=== PATIENT | female | born 1990 | race African-American/Black ===

== ENCOUNTER 2018-03-13 10:12 | Emergency (ER) | payer MEDICAID, OTHER ==
[~2018-03-13] VITALS: Ht 157.5 cm; Wt 58.1 kg
[2018-03-13] MEDS ORDERED: IBUPROFEN 800MG TABLET PO ONE (12:00)
[2018-03-13 12:03] VITALS: BP 135/92
== END 2018-03-13 14:08 | disposition home or self-care (01) ==
LOC: ER 10:42
DX: S40.012A Contusion of left shoulder, initial encounter (principal); J45.909 Unspecified asthma, uncomplicated; W01.0XXA Fall on same level from slipping, tripping and stumbling without subsequent striking against object, initial encounter; Y93.02 Activity, running; Y92.009 Unspecified place in unspecified non-institutional (private) residence as the place of occurrence of the external cause; Y99.8 Other external cause status
CPT/HCPCS: 73030; 81025; 99284

== ENCOUNTER 2019-06-28 07:20 | Emergency (ER) | payer SELFPAY ==
[~2019-06-28] VITALS: Ht 157.5 cm; Wt 68.0 kg
[2019-06-28] MEDS ORDERED: KETOROLAC 30MG/ML VIAL IV STA (08:28)
[2019-06-28] MEDS ORDERED: METOCLOPRAMIDE HCL 10MG/2ML VIAL IV ONE (08:30)
[2019-06-28] MEDS ORDERED: FLUTICASONE PROPIONATE 50MCG/SPRAY BOTTLE BOTHNSTRLS SCH (09:00)
[2019-06-28 11:14] VITALS: BP 128/89
== END 2019-06-28 11:15 | disposition home or self-care (01) ==
LOC: ER 07:29
DX: J01.80 Other acute sinusitis (principal); B34.8 Other viral infections of unspecified site; J45.909 Unspecified asthma, uncomplicated
CPT/HCPCS: 71045; 81025; 96374; 96375; 99283; J1885; J2765; Z7610

== ENCOUNTER 2019-07-31 04:48 | Emergency (ER) | payer SELFPAY ==
[~2019-07-31] VITALS: Ht 157.5 cm; Wt 68.0 kg
[2019-07-31] MEDS ORDERED: ONDANSETRON HCL 4MG/2ML INJ IV STA (06:31)
[2019-07-31] MEDS ORDERED: KETOROLAC 30MG/ML VIAL IV STA (06:31)
[2019-07-31] MEDS ORDERED: SODIUM CHLORIDE 0.9% 1,000 ML IV ONE (06:31)
[2019-07-31 07:09] LABS: CLARITY URINE CLEAR (CLEAR); COLOR URINE YELLOW (YELLOW); KETONES URINE NEGATIVE (NEGATIVE); LEUKOCYTE ESTERASE URINE NEGATIVE (NEGATIVE); NITRITE URINE NEGATIVE (NEGATIVE); OCCULT BLOOD URINE NEGATIVE (NEGATIVE); PROTEIN URINE NEGATIVE (NEGATIVE); SPECIFIC GRAVITY URINE 1.018 (1.005-1.030)
[2019-07-31 07:21] LABS: CHLORIDE 110 mEq/L (98-107)
[2019-07-31 07:25] LABS: AMYLASE 103 IU/L (25-115)
[2019-07-31 07:26] LABS: BASOPHILS % 0.4 % (0.0-2.0); EOSINOPHILS % 0.6 % (0.0-5.0); HEMATOCRIT. 41.6 % (36.0-48.0); HEMOGLOBIN. 13.9 g/dL (12.0-16.0); LYMPHOCYTES % 11.5 % (20.0-50.0); MEAN CORPUSCULAR HEMOGLOBIN 29.8 pg (28.0-32.0); MEAN PLATELET VOLUME 9.5 fl (7.4-10.4); MONOCYTES % 2.4 % (2.0-8.0); NEUTROPHILS % 85.1 % (40.0-76.0); PLATELET 210 x1000/uL (130-400); RED BLOOD CELL COUNT 4.67 mill/uL (4.2-5.4); RED CELL DISTRIBUTION WIDTH 14.4 % (11.6-14.6)
[2019-07-31 09:15] VITALS: BP 142/55
== END 2019-07-31 09:17 | disposition home or self-care (01) ==
LOC: ER 04:48
DX: R10.12 Left upper quadrant pain (principal); R11.10 Vomiting, unspecified; J45.909 Unspecified asthma, uncomplicated
CPT/HCPCS: 36415; 80053; 81003; 81025; 82150; 83690; 85025; 96361; 96374; 96375; 99283; J1885; J2405; J7030; Z7610

== ENCOUNTER 2023-12-10 07:51 | Emergency (ER) | payer SELFPAY ==
[~2023-12-10] VITALS: Ht 157.5 cm; Wt 72.0 kg
[2023-12-10 08:04] VITALS: O2SAT 99
[2023-12-10] MEDS ORDERED: FLUT9.9S BOTHNSTRLS (08:54)
[2023-12-10 09:12] VITALS: BP 135/80; PULSE 68; RESP 16; TEMP 98.1
== END 2023-12-10 09:15 | disposition home or self-care (01) ==
LOC: ER 07:51
DX: H69.81 Other specified disorders of Eustachian tube, right ear (principal); H93.11 Tinnitus, right ear; J45.909 Unspecified asthma, uncomplicated
CPT/HCPCS: 99282